=== PATIENT | female | born 1990 | race African-American/Black ===

== ENCOUNTER 2017-02-02 08:23 | Emergency (ER) | payer SELFPAY ==
[~2017-02-02] VITALS: Ht 162.6 cm; Wt 88.5 kg
[2017-02-02 09:56] LABS: URINE SOURCE CLEAN CATCH
[2017-02-02 09:59] LABS: URINE APPEARANCE CLEAR; URINE BILIRUBIN NEG (NEG); URINE BLOOD NEG (NEG); URINE COLOR YELLOW; URINE GLUCOSE NEG (NEG); URINE KETONE TRACE (NEG); URINE LEUKOCYTE ESTERASE NEG (NEG); URINE NITRATE NEG (NEG); URINE PROTEIN NEG (NEG); URINE SPECIFIC GRAVITY 1.027 (1.003-1.035)
[2017-02-02 10:01] LABS: CULTURE INDICATED? NO
[2017-02-03 22:12] LABS: CHLAMYDIA TRACH Not Detected (Not Detected); N GONOR Not Detected (Not Detected)
== END 2017-02-02 10:12 | disposition home or self-care (01) ==
LOC: CED 08:23 → CFTX 08:23
PROVIDERS: Nurse Practitioner
DX: N76.0 Acute vaginitis (principal); F17.210 Nicotine dependence, cigarettes, uncomplicated; Z88.0 Allergy status to penicillin
CPT/HCPCS: 81003; 84703; 87491; 87591; 87808; 87905; 99283